=== PATIENT | female | born 1965 | race Caucasian/White ===

== ENCOUNTER 2017-11-11 07:30 | Day surgery (SDC) | payer OTHER ==
[~2017-11-11 07:30] MED LIST: Lactated Ringers 1,000 ML IV SCH; Sodium Chloride 0.9% 10 ML Syringe FLUSH PRN
[2017-11-11] MEDS ORDERED: Lactated Ringers 1,000 ML IV SCH ×3 (08:30→10:45)
[2017-11-11] MEDS ORDERED: Albuterol 0.083% 2.5 MG/3 ML Neb Soln NEB PRN (09:10)
[2017-11-11] MEDS ORDERED: HYDROmorphone 2 MG/ML SDV IV PRN (09:10)
[2017-11-11] MEDS ORDERED: HYDROmorphone 2 MG/ML SDV IVPUSH PRN (09:10)
[2017-11-11] MEDS ORDERED: Promethazine 25 MG/ML SDV IM PRN (09:10)
[2017-11-11] MEDS ORDERED: Naloxone 0.4 MG/ML SDV IVPUSH PRN (09:10)
[2017-11-11] MEDS ORDERED: fentaNYL 100 MCG/2 ML SDV IVPUSH PRN (09:10)
[2017-11-11] MEDS ORDERED: Ondansetron 4 MG/2 ML SDV IVPUSH PRN ×2 (09:10→10:45)
[2017-11-11] MEDS ORDERED: Dexamethasone 4 MG/ML 5 ML MDV IVPUSH ONE (09:19)
[2017-11-11] MEDS ORDERED: Lactated Ringers 1,000 ML IV ONE (09:19)
[2017-11-11] MEDS ORDERED: Propofol 200 MG/20 ML SDV IV ONE (09:19)
[2017-11-11] MEDS ORDERED: Ketorolac 30 MG/ML SDV IVPUSH ONE (09:19)
[2017-11-11] MEDS ORDERED: HYDROmorphone 2 MG/ML SDV IV ONE (09:19)
[2017-11-11] MEDS ORDERED: Ondansetron 4 MG/2 ML SDV IVPUSH ONE (09:19)
[2017-11-11] MEDS ORDERED: Midazolam 1 MG/ML 2 ML SDV IV ONE (09:19)
[2017-11-11] MEDS ORDERED: ceFAZolin 1 GM Vial IV ONE (09:19)
[2017-11-11] MEDS ORDERED: fentaNYL 100 MCG/2 ML SDV IV ONE (09:19)
--- NOTE | 2017-11-11 09:23 | PCM.PN ---
- General Info Date of Service: 11/11/17 - Review of Systems Systems Review Comment:: 52 y/o female with biopsy proven carcinoma of the right breast here for Right Mastectomy with Right Axillary [facility] Lymph Node Biopsy. She is medically stable to proceed with no recent significant changes to her health status. The site of the proposed procedure is confirmed with the patient and marked. 1.4Mc of radioisotop is injected around the right areola. The decision for mastectomy is again confirmed with the patient. She agrees to proceed accepting risks. - Patient Data Vitals - Most Recent: Last Vital Signs Temp 98.4 F 11/11/17 08:21 Pulse 78 11/11/17 08:21 Resp 20 11/11/17 08:21 BP 107/64 11/11/17 08:21 Pulse Ox 98 11/11/17 08:21 Weight - Most Recent: 130 lb Med Orders - Current: Current Medications Albuterol (Proventil Neb Soln) 2.5 mg NEB ONETIME PRN PRN Reason: Wheezing Fentanyl (Sublimaze) 50 mcg IVPUSH Q5M PRN PRN Reason: Pain (severe 7-10) Hydromorphone HCl (Dilaudid) 0.2 mg IV Q10M PRN PRN Reason: Pain (severe 7-10) Hydromorphone HCl (Dilaudid) 0.2 mg IVPUSH Q10M PRN PRN Reason: Pain (moderate 4-6) Lactated Ringer's (Ringers, Lactated) 1,000 mls @ 125 mls/hr IV ASDIRECTED [facility] Last Admin: 11/11/17 08:19 Dose: 125 mls/hr Lactated Ringer's (Ringers, Lactated) 1,000 mls @ 0 mls/hr IV ASDIRECTED [facility] PRN Reason: KVO Naloxone HCl (Narcan) 0.2 mg IVPUSH Q1M PRN PRN Reason: Respiratory Depression Ondansetron HCl (Zofran) 4 mg IVPUSH ONETIME PRN PRN Reason: Nausea/Vomiting Promethazine HCl (Phenergan) 12.5 mg IM Q4H PRN PRN Reason: Nausea/Vomiting Sodium Chloride (Saline Flush) 10 ml FLUSH ASDIRECTED PRN PRN Reason: Keep Vein Open - Problem List Review Problem List Initiated/Reviewed/Updated: Yes - My Orders Last 24 Hours: My Active Orders 11/11/17 07:30 Sodium Chloride 0.9% [Saline Flush] 10 ml FLUSH ASDIRECTED PRN 11/11/17 08:04 Patient Status [ADT] Routine Patient to Empty Bladder [RC] ASDIRECTED Verify Patient Consent Obtain [RC] ASDIRECTED Peripheral IV Insertion Adult [OM.PC] Routine Sequential Compression Device [OM.PC] Routine Resuscitation Status Routine 11/11/17 08:09 Tumor Local Limited [NM] Routine 11/11/17 08:30 Lactated Ringers [Ringers, Lactated] 1,000 ml IV ASDIRECTED 11/11/17 Breakfast Nothing Per Oral Diet [DIET] - Assessment Assessment:: Right Breast Cancer - Plan Plan:: Right Mastectomy and axillary sentinel lymph node biopsy
[2017-11-11] MEDS ORDERED: Isosulfan Blue 5 ML SDV SUBCUT ONE (09:30)
[2017-11-11] MEDS ORDERED: Morphine 2 MG/ML Syringe IVPUSH PRN (10:45)
[2017-11-11] MEDS ORDERED: Acetaminophen/HYDROcodone 325-5 MG Tab PO PRN (10:45)
--- NOTE | 2017-11-11 10:45 | PCM.OPNOTE ---
- General Post-Op/Procedure Note Date of Surgery/Procedure: 11/11/17 Operative Procedure(s): Right Mastectomy and Right [place] Axillary Lymph Node Biopsy Findings: No gross evidence of metastatic disease Lymph nodes not enlarged Pre Op Diagnosis: Carcinoma of Right Breast Post-Op Diagnosis: Same Anesthesia Technique: General LMA Primary Surgeon: Felton Torrez Clinical Program Consultant: Raman Duran Reason Clinical Program Consultant Was Necessary: To assist with retraction, exposure and dissection Pathology: Right Breast and 3 sentinel lymph nodes from right axilla Output, Urine Amount: 0 EBL in mLs: 50 Surgical Drain/Tube Type: Lev Daley Flat Drain Complications: None Condition: Good
[2017-11-11] MEDS: Acetaminophen/HYDROcodone 325-5 MG Tab PO PRN (12:09)
--- NOTE | 2017-11-11 17:32 | OR ---
DATE OF OPERATION: 11/11/2017 SURGEON: Felton Torrez MD OTOLARYNGOLOGY SURGEON: speech assistant: Dr. Raman Duran. Lay Out Machine Operator necessary to assist in dissection, retraction, and exposure. PREOPERATIVE DIAGNOSIS: Carcinoma of the right breast. POSTOPERATIVE DIAGNOSIS: Carcinoma of the right breast. OPERATIONS PERFORMED: Right mastectomy and right sentinel axillary lymph node dissection. INDICATIONS FOR SURGERY: This 52-year-old female was recently diagnosed with invasive cancer of the right breast. She has reviewed her options and wishes to proceed with mastectomy and axillary node sampling. FINDINGS: There was no gross evidence of metastatic disease or tumor extension into the surrounding tissues. Her axillary nodes were small and did not appear grossly pathologic. PROCEDURE IN DETAIL: The patient was taken to the operating room. She was given general anesthesia by LMA. The tissue beneath the areola was injected with isosulfan blue. Radioisotope had been previously injected in the areolar space prior to taking the patient back to the operating room. The right breast was then sterilely prepped and draped. A planned transverse elliptical mastectomy incisions were marked and then the superior incision was made in the superior flap raised with the use of electrocautery. Bleeding sites along the way were controlled with cautery as well as suture ligatures of 3-0 Vicryl. Once the superior flap had been created, our blunt dissection proceeded into the axilla and using the hand-held radioactivity detector, 3 separate lymph nodes were identified that seemed to have increased uptake. As these were encountered and identified, they were excised with cautery. 10-second counts for these 3 nodes were 3933 for the first node, 3507 for the second node, and 2073 for the third node. No other palpable enlarged nodes were noted in the right axilla. The mastectomy was then completed. The inferior incision was made and then the inferior flap was raised with electrocautery. The breast was dissected off the underlying pectoralis major muscle including the fascia with the sample. Three lymph nodes were sent individually and the breast was also sent all to the pathologist for permanent section. Copious irrigation of the operative region was performed and when good hemostasis had been assured, a flat Lev-Daley drain was placed through a separate stab incision and then secured to the skin with a 2-0 silk. The skin edges were then apposed by approximating the subcutaneous tissue with interrupted 3-0 Vicryl and the skin with skin oniel. Sterile dressing was placed. The drain was connected to bulb suction. The patient was then awakened and taken from the operating room in satisfactory condition. ESTIMATED BLOOD LOSS: 50 mL. COMPLICATIONS: None. PROGNOSIS: Good. /[id number] DEISY/BARBRA
[2017-11-12] MEDS: Acetaminophen/HYDROcodone 325-5 MG Tab PO PRN (01:25)
[2017-11-12] MEDS ORDERED: Acetaminophen 325 MG Tab PO PRN (01:59)
--- NOTE | 2017-11-12 14:54 | NM ---
INDICATION: Right-sided breast mass, pre-mastectomy - sentinel axillary node. NUCLEAR MEDICINE TUMOR LOCALIZATION, LIMITED: 1.2 mCi and 1.4 mL volume of technetium-99m sulfur colloid was injected at the right breast pre-mastectomy for delineation of sentinel nodes. Five sites were injected by Dr. Felton Torrez. Injection time 0910 hours. MTDD
== END 2017-11-12 09:05 ==
LOC: FB.SDS 07:30 → FB.MS 07:30 → UNDOADMIN 07:30 → EDSTATUS 09:00 → FB.SDS 11:40 → FB.MS 11:40 → FB.SDS 11-12 09:05
PROVIDERS: ATTEND Surgery
DX: C50.911 Malignant neoplasm of unspecified site of right female breast (principal); Z17.0 Estrogen receptor positive status [ER+]; Z82.49 Family history of ischemic heart disease and other diseases of the circulatory system; Z98.51 Tubal ligation status; Z90.89 Acquired absence of other organs; Z90.49 Acquired absence of other specified parts of digestive tract; Z98.890 Other specified postprocedural states; Z88.8 Allergy status to other drugs, medicaments and biological substances; Z79.899 Other long term (current) drug therapy
CPT/HCPCS: 19307; 38792; 78800; 88307; 88341; 88342; 88360; 94150; A9270; J0690; J1100; J1170; J1885; J2250; J2405; J2704; J3010; J7120; Q9968